=== PATIENT | female | born 1940 | race Caucasian/White ===

== ENCOUNTER 2020-11-20 07:49 | Outpatient (CLI) | payer MEDICARE, SELFPAY ==
--- NOTE | ~2020-11-20 | MM_ITS ---
EXAMINATION: MM screening [place] BI w lydia HISTORY: Screening mammogram TECHNIQUE: Craniocaudal and mediolateral oblique 3-D tomosynthesis images were obtained and synthetic 2-D images were generated. CAD analysis was submitted and interpreted. COMPARISON: 05/29/2019, 03/10/2018, 01/04/2017 bilateral digital screening mammogram examinations BREAST PARENCHYMAL COMPOSITION: There are scattered areas of fibroglandular density. FINDINGS: Stable mild fibroglandular asymmetry since 12/27/2016. There is no evidence of suspicious ma ss, calcification, or architectural distortion to suggest malignancy in either breast. There has been no suspicious interval change. IMPRESSION: 1. No mammographic evidence of malignancy. 2. Recommend routine screening mammography in one year. BI-RADS Category 1: Negative Reviewed, dictated and finalized at location A. RITIES TRADER
--- NOTE | ~2020-11-20 | DEXA_ITS ---
Bone Density Report Name: Vicky Mckinney Age: 79 Sex: Female Ethnicity: White Date of : 1940 Indication: postmenopausal; hysterectomy; Referring Provider: OLEGARIO HANCOCK Study: Bone densitometry was performed. Exam Date: November 20, 2020 Accession number: [id number] Bone Density: Region BMD T-score Z-score Classification AP Spine (L1-L4) 0.979 -0.6 2.0 Normal Femoral Neck (Left) 0.759 -0.8 1.4 Normal Total Hip (Left) 0.916 -0.2 1.8 Normal Total Hip Bilateral Avg 0.898 -0.4 1.7 Normal Femoral Neck (Right) 0.712 -1.2 1.0 Osteopenia Total Hip (Right) 0.878 -0.5 1.5 Normal World Health Organization criteria for BMD impression classify patients as: Normal (T-score at or above -1.0), Osteopenia (T-score between -1.0 and -2.5), or Osteoporosis (T-score at or below -2.5). 10-year Fracture Risk(1): Major Osteoporotic Fracture 12% Hip Fracture 2.4% Reported Risk Factors: [place] (), Neck BMD=0.712, BMI=28.3 (1) FRAX(R) Version 3.08. Fracture probability calculated for an untreated patient. Fracture probability may be lower if the patient has received treatment. Previous Exams: Region Exam Age BMD T-score BMD Change BMD Change Date g/cm2 vs Baseline vs Previous AP Spine(L1-L4) 11/20/2020 79 0.979 -0.6 -0.066(-6.3%)* -0.066(-6.3%)* 01/04/2017 76 1.045 0.0 Total Hip(Left) 11/20/2020 79 0.916 -0.2 -0.043(-4.5%)* -0.043(-4.5%)* 01/04/2017 76 0.960 0.1 Total Hip(Right) 11/20/2020 79 0.878 -0.5 -0.019(-2.2%) -0.019(-2.2%) 01/04/2017 76 0.897 -0.4 *Denotes significance at 95% confidence level, LSC for AP Spine = 0.022 g/cm2, LSC for Total Hip = 0.027 g/cm2 Clinical Information Provided by Patient: Has used the following medications: Calcium Has the following medical conditions: Hysterectomy Patient maximum height was 63 Menopause Age: 38 No regular weight bearing exercise Onset of menses at age 10 Number of children 3 Impression: The patient has low bone mass, based on the Right Femoral Neck T-score. The patient has an estimated ten-year risk of hip fracture of 2.4% and an estimated ten-year risk of major fracture of 12%, based on the WHO FRAX algorithm. The BMD for the AP Spine(L1-L4) decreased, changing by -6.3% since the last DXA exam. The BMD for the Total Hip(Left) decreased, changing by -4.5% since the last DXA exam. Discussion: BONE DENSITY IS LOW AT ONE OR MORE SKELETAL SITES. This patient's l
== END 2020-11-20 07:50 | disposition home or self-care (01) ==
LOC: ANHIMG 07:52
PROVIDERS: PCP Emergency Medicine; Visit Provider Emergency Medicine
DX: Z12.31 Encounter for screening mammogram for malignant neoplasm of breast (principal); Z78.0 Asymptomatic menopausal state; M85.851 Other specified disorders of bone density and structure, right thigh
CPT/HCPCS: 77063; 77067; 77080

== ENCOUNTER 2021-11-17 10:56 | Outpatient (CLI) | payer MEDICARE, SELFPAY ==
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
== END 2021-11-17 10:57 | disposition home or self-care (01) ==
PROVIDERS: Visit Provider Hospitalist
DX: R59.9 Enlarged lymph nodes, unspecified (principal); R92.8 Other abnormal and inconclusive findings on diagnostic imaging of breast
CPT/HCPCS: 76642; 77062; 77066; G0279

== ENCOUNTER 2022-05-21 11:19 | Outpatient (CLI) | payer MEDICARE, SELFPAY ==
--- NOTE | ~2022-05-21 | MMUS_ITS ---
EXAMINATION: MM diagnostic [place] LT w lydia, US breast LT limited HISTORY: Six-month follow-up for probably benign focal asymmetry of the left breast TECHNIQUE: Craniocaudal, mediolateral, and mediolateral oblique 3-D tomosynthesis images of the left breast were performed and synthetic 2-D images were generated. CAD analysis was submitted and interpr eted. High resolution limited left breast ultrasound was performed. COMPARISON: 11/17/2021, 11/20/2020, 05/29/2019 BREAST PARENCHYMAL COMPOSITION: There are scattered areas of fibroglandular density. FINDINGS: MAMMOGRAPHIC FINDINGS: There is persistent focal asymmetry anterior and middle thirds of the inner left breast. There are so me internal areas of fat necrosis. No suspicious mass, calcification, or architectural distortion are identified. ULTRASOUND: There are masses in the upper inner quadrant of the left breast which are probably cystic, some of wh ich demonstrate minimal peripheral solid components. A uniformly hypoechoic 7 mm round mass is seen a t the 9:00 location 8 cm from the nipple. IMPRESSION: 1. Mammographic and sonographic findings consistent with an evolving hematoma of the inner left breas t accounting for the focal asymmetry. 2. Recommend annual screening mammography while the patient remains in good health. Of note, patient will be due for screening of the right breast in November. BI-RADS Category 2: Benign finding(s). Reviewed, dictated and finalized at location A. IMPRESSION: 1. Mammographic and sonographic findings consistent with an evolving hematoma o f the inner left breast accounting for the focal asymmetry. 2. Recommend annual screening mammography while the patient remains in good hea lth. Of note, patient will be due for screening of the right breast in November . BI-RADS Category 2: Benign finding(s).
== END 2022-05-21 11:20 | disposition home or self-care (01) ==
PROVIDERS: PCP Hospitalist; Visit Provider Hospitalist
DX: R92.8 Other abnormal and inconclusive findings on diagnostic imaging of breast (principal)
CPT/HCPCS: 76642; 77061; 77065; G0279

== ENCOUNTER 2023-03-01 08:26 | Outpatient (CLI) | payer MEDICARE, SELFPAY ==
--- NOTE | ~2023-03-01 | DEXA_ITS ---
Bone Density Report Name: GUI MOSELEY Age: 82 Sex: Female Ethnicity: White Date of : 1940 Indication: postmenopausal; screening for osteoporosis; height loss; Referring Provider: GASTON, OLEGARIO [place] Study: Bone densitometry was performed. Exam Date: March 01, 2023 Accession number: [id number] Bone Density: Region BMD T-score Z-score Classification AP Spine(L1-L4) 0.928 -1.1 1.6 Osteopenia Femoral Neck (Left) 0.733 -1.0 1.3 Normal Total Hip (Left) 0.855 -0.7 1.4 Normal Femoral Neck (Right) 0.661 -1.7 0.7 Osteopenia Total Hip (Right) 0.773 -1.4 0.7 Osteopenia Total Hip Mean 0.814 -1.1 1.1 Osteopenia World Health Organization criteria for BMD impression classify patients as: Normal (T-score at or above -1.0), Osteopenia (T-score between -1.0 and -2.5), or Osteoporosis (T-score at or below -2.5). 10-year Fracture Risk(1): Major Osteoporotic Fracture 14% Hip Fracture 3.8% Reported Risk Factors: [place] (), Neck BMD=0.661, BMI=25.1 (1) FRAX(R) Version 3.08. Fracture probability calculated for an untreated patient. Fracture probability may be lower if the patient has received treatment. Previous Exams: Region Exam Age BMD T-score BMD Change BMD Change Date g/cm2 vs Baseline vs Previous AP Spine (L1-L4) 03/01/2023 82 0.928 -1.1 -0.117 (-11.2% -0.051 (-5.2%) 11/20/2020 79 0.979 -0.6 -0.066 (-6.3%) -0.066 (-6.3%) 01/04/2017 76 1.045 0.0 Total Hip(Left) 03/01/2023 82 0.855 -0.7 -0.105 (-10.9% -0.062 (-6.7%) 11/20/2020 79 0.916 -0.2 -0.043 (-4.5%) -0.043 (-4.5%) 01/04/2017 76 0.960 0.1 Total Hip(Right) 03/01/2023 82 0.773 -1.4 -0.124 (-13.8% -0.105 (-11.9% 11/20/2020 79 0.878 -0.5 -0.019 (-2.2%) -0.019 (-2.2%) 01/04/2017 76 0.897 -0.4 *Denotes significance at 95% confidence level, LSC for AP Spine = 0.022 g/cm2, LSC for Total Hip = 0.027 g/cm2 Clinical Information Provided by Patient: Has used the following medications: Vitamin D, Calcium Patient maximum height was 64 Menopause Age: 38 Drinks caffeinated beverages Onset of menses at age 10 Number of children 3 Impression: The patient has low bone mass, based on the Right Femoral Neck T-score. The patient has an estimated ten-year risk of hip fracture of 3.8% and an estimated ten-year risk of major fracture of 14%, based on the WHO FRAX algorithm. The BMD for the AP Spine (L1-L4) decreased, changing by
--- NOTE | ~2023-03-01 | MM_ITS ---
EXAMINATION: MM screening [facility] BI w lydia HISTORY: Screening mammogram TECHNIQUE: Craniocaudal and mediolateral oblique 3-D tomosynthesis images were obtained and synthetic 2-D images were generated. CAD analysis was submitted and interpreted. COMPARISON: 05/21/2022, 11/17/2021, 11/20/2020, 05/29/2019 BREAST PARENCHYMAL COMPOSITION: There are scattered areas of fibroglandular density. FINDINGS: There is evolving focal asymmetry left breast with the appearance of a resolving hematoma. No suspicious mass, calcification, or architectural distortion are identified in either breast to sug gest malignancy. There has been no suspicious interval change. IMPRESSION: 1. No mammographic evidence of malignancy. 2. Recommend routine screening mammography while the patient remains in good health. BI-RADS Category 2: Benign finding(s). Reviewed, dictated and finalized at location A. IMPRESSION: 1. No mammographic evidence of malignancy. 2. Recommend routine screening mammography while the patient remains in good he alth. BI-RADS Category 2: Benign finding(s).
== END 2023-03-01 08:27 | disposition home or self-care (01) ==
PROVIDERS: PCP Hospitalist; Visit Provider Hospitalist
DX: Z12.31 Encounter for screening mammogram for malignant neoplasm of breast (principal); Z78.0 Asymptomatic menopausal state; M85.88 Other specified disorders of bone density and structure, other site; M85.851 Other specified disorders of bone density and structure, right thigh
CPT/HCPCS: 77063; 77067; 77080

== ENCOUNTER 2024-02-19 19:57 | Emergency (ER) | payer MEDICARE, SELFPAY ==
[2024-02-19 20:05] VITALS: BP 200/80; BP 218/69; PULSE 77; RESP 20; TEMP 37; O2SAT 99
[2024-02-19 20:10] VITALS: BP 204/68
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
== END 2024-02-19 20:24 | disposition short-term general hospital (02) ==
LOC: EXPBETH 20:01
PROVIDERS: Emergency Provider Nurse Practitioner Family
DX: S01.411A Laceration without foreign body of right cheek and temporomandibular area, initial encounter (principal); S09.90XA Unspecified injury of head, initial encounter; S05.11XA Contusion of eyeball and orbital tissues, right eye, initial encounter; S40.211A Abrasion of right shoulder, initial encounter; W19.XXXA Unspecified fall, initial encounter; Z87.891 Personal history of nicotine dependence; E78.5 Hyperlipidemia, unspecified; M19.90 Unspecified osteoarthritis, unspecified site; Z86.73 Personal history of transient ischemic attack (TIA), and cerebral infarction without residual deficits; I10 Essential (primary) hypertension; F03.90 Unspecified dementia, unspecified severity, without behavioral disturbance, psychotic disturbance, mood disturbance, and anxiety; Z79.82 Long term (current) use of aspirin
CPT/HCPCS: 99212; G0463

== ENCOUNTER 2024-02-19 20:57 | Emergency (ER) | payer MEDICARE, SELFPAY ==
--- NOTE | ~2024-02-19 | CT_ITS ---
Noncontrast CT scan of the cervical spine Technique: Multiple contiguous axial [address] images of the cervical spine were obtained and rec onstructed in 2D sagittal and coronal planes on the acquisition scanner. Dose reduction technique was used on this scan by utilizing automated exposure control, adjustment of the mA and/or kV according to patient size. The dose-length product (DLP) was 274.48 mGy-cm. Clinical History: Pain Findings: No fractures or dislocations. There is fusion of the left C4-C5 facet joint. There is mode rate to advanced degenerative disc narrowing throughout the cervical spine, probably sparing the C2-C 3 disc space. There is moderate degenerative change at the articulation of the odontoid process with the anterior arch of C1. There is right neural foraminal narrowing at C3-C4, right facet arthropathy. There is mild bilateral neural foraminal narrowing at C4-C5 with bilateral facet arthropathy. There is bilateral mild neural foraminal narrowing at C5-C6 and C6-C7. No prevertebral soft tissue swelling . Impression: No fracture or subluxation of the cervical spine. Degenerative change, as detailed above. Reviewed, dictated and finalized at [facility]. Impression: No fracture or subluxation of the cervical spine. Degenerative change, as detailed above.
--- NOTE | ~2024-02-19 | CT_ITS ---
Non-contrast Head CT History: Status post fall Technique: Axial non-contrast imaging of the brain was performed. Dose reduction technique was used on this scan by utilizing automated exposure control and iterative reconstruction technique. The dose -length product (DLP) was 605.33 mGy-cm. Findings: There is no evidence of intracranial hemorrhage, mass lesion, or acute infarct. Brain par enchyma appears normal. The ventricles and subarachnoid spaces are normal in size. The calvarium ap pears normal. The visualized paranasal sinuses and mastoid air cells are clear. Impression: No significant abnormality seen. Reviewed, dictated and finalized at location . Impression: No significant abnormality seen.
[2024-02-19 21:05] VITALS: BP 189/92; PULSE 68; RESP 20; TEMP 36.9; O2SAT 99
--- NOTE | 2024-02-19 21:37 | ED.GENADULT ---
HPI - General Adult General Chief complaint: Fall Stated complaint: fall, R hand lac Time Seen by Provider: 02/19/24 21:05 History of Present Illness HPI narrative: this is an 83-year-old female presenting after a fall. She [place] when she tripped. She was holding a glass that broke which cut right hand and her left hand. She then struck her head on the ground. No loss of consciousness. No use of blood thinners. No altered mental status. She was able to get up and her daughter took her to urgent care where they were concerned about bleeding from hand. She was then sent to the ED for further evaluation. At this time the patient has no complaints. She is having some minor bleeding from her right hand. No functional deficits. Related Data Home Medications Medication Instructions Recorded Confirmed donepezil 5 mg tablet mg 02/19/24 02/19/24 Allergies Allergy/AdvReac Type Severity Reaction Status Date / Time No Known Allergies Allergy Verified 02/19/24 20:00 [facility] Past Medical History Medical History Chest tube in place HLD (hyperlipidemia) OA (osteoarthritis) Family History Family History Grandparent Family history of tuberculosis Family history of congestive heart failure Father Family history of hypercholesterolemia Hypertension, Onset Age: 82 Family history of cardiovascular disease, Onset Age: 82 Acute myocardial infarction, Onset Age: 82 Family history of elevated blood lipids, Onset Age: 82 Family history of congestive heart failure, Onset Age: 82 Mother Family history of hypercholesterolemia, Onset Age: 98 Hypertension, Onset Age: 98 Family history of gastrointestinal disorder, Onset Age: 98 Family history of osteoarthritis Family history of cardiac disorder, Onset Age: 98 Family history of emphysema, Onset Age: 98 Family history of coronary artery disease, Onset Age: 98 Family history of arthritis, Onset Age: 98 Family history of dementia, Onset Age: 98 Sibling Family history of hypercholesterolemia Hypertension Family history of osteoarthritis Family history of alcoholism Other Family history of gout Family history of hemochromatosis Family history of thyroid disease Social History Social History Social History: multi level home ramp, walk in shower. 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 Head: atraumatic. EYES: EOMI, NOSE: Atraumatic NECK: Trachea midline RESPIRATORY: No increased rate of breathing CARDIOVASCULAR: RRR, ABDOMINAL: Non-distended MUSCULOSKELETAl: No obvious deformities NEURO: Alert. Cranial nerves 2-12 grossly intact. Sensation light touch, motor function cerebellar function intact for 4 extremities. Gait exam was normal. SKIN:: 1.5 cm laceration over the right thenar eminence. 1 cm superficial laceration over the left dorsal base of thumb PSYCHIATRIC: Normal affect Course Vital Signs Vital signs: Vital Signs Temperature 98.4 F 02/19/24 21:05 Pulse Rate 68 02/19/24 21:05 Respiratory Rate 20 02/19/24 21:05 Blood Pressure 189/92 H 02/19/24 21:05 Pulse Oximetry 99 02/19/24 21:05 Oxygen Delivery Room Air 02/19/24 21:05 Temperature 98.4 F 02/19/24 21:05 Pulse Rate 60 02/19/24 23:15 Respiratory Rate 17 02/19/24 23:15 Blood Pressure 171/66 H 02/19/24 23:15 Pulse Oximetry 96 02/19/24 23:15 Oxygen Delivery Room Air 02/19/24 21:05 Procedures Laceration Laceration 1: Date: 02/19/24 Site: hand Side (If applicable): right Size (cm): 1.5 Description: linear Depth: simple, single lay
[2024-02-19 23:15] VITALS: BP 171/66; PULSE 60; RESP 17; O2SAT 96
== END 2024-02-20 00:57 | disposition home or self-care (01) ==
PROVIDERS: Emergency Provider Emergency Medicine
DX: S61.411A Laceration without foreign body of right hand, initial encounter (principal); S61.012A Laceration without foreign body of left thumb without damage to nail, initial encounter; F03.90 Unspecified dementia, unspecified severity, without behavioral disturbance, psychotic disturbance, mood disturbance, and anxiety; E78.5 Hyperlipidemia, unspecified; I10 Essential (primary) hypertension; M19.90 Unspecified osteoarthritis, unspecified site; Z86.73 Personal history of transient ischemic attack (TIA), and cerebral infarction without residual deficits; Z87.891 Personal history of nicotine dependence; W01.110A Fall on same level from slipping, tripping and stumbling with subsequent striking against sharp glass, initial encounter
CPT/HCPCS: 12001; 70450; 72125; 99284